=== PATIENT | male | born 1975 ===

== ENCOUNTER 2021-07-16 16:44 | Emergency (ER) | payer MEDICARE, MEDICAID ==
[~2021-07-16] VITALS: Ht 175.3 cm; Wt 68.2 kg
[2021-07-16 16:55] VITALS: BP 153/79
== END 2021-07-16 17:35 | disposition home or self-care (01) ==
LOC: ER 16:45
DX: S70.02XA Contusion of left hip, initial encounter (principal); V29.88XA Motorcycle rider (driver) (passenger) injured in other specified transport accidents, initial encounter; Y93.55 Activity, bike riding; Y92.89 Other specified places as the place of occurrence of the external cause; Y99.9 Unspecified external cause status
CPT/HCPCS: 73502; 99283